=== PATIENT | female | born 1995 | race African-American/Black ===

== ENCOUNTER 2017-03-09 19:55 | Emergency (ER) | payer SELFPAY ==
[2017-03-09 19:57] VITALS: BP 111/61; PULSE 84; RESP 14; TEMP 98.6; O2SAT 98
--- NOTE | 2017-03-09 21:09 | PD ---
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 Patient denies any vaginal discharge or bleeding. Denies abdominal pain. No urinary symptoms. She has no other symptoms to report. History Past Medical Histgory Medical History: Denies Significant Hx Social History Alcohol Use: Yes Tobacco Use: No Review of Systems Except as stated in HPI: all other systems reviewed are Neg Physical Exam Narrative GENERAL: Well-nourished, well-developed female patient in no acute distress SKIN: Focused skin assessment warm/dry. HEAD: Normocephalic. EYES: No scleral icterus. No injection or drainage. NECK: Supple, trachea midline. No JVD or lymphadenopathy. CARDIOVASCULAR: Regular rate and rhythm without murmurs, gallops, or rubs. RESPIRATORY: Breath sounds equal bilaterally. No accessory muscle use. GASTROINTESTINAL: Abdomen soft, non-tender, nondistended. GENITOURINARY: Normal external genitalia without lesions. There is erythema in the labial folds with a white coating in between the labia. There is no vaginal bleeding or discharge noted. Internal exam is deferred MUSCULOSKELETAL: No cyanosis, or edema. BACK: Nontender without obvious deformity. No CVA tenderness. Data Data Last Documented VS Vital Signs Date Time Temp Pulse Resp B/P Pulse Ox O2 Delivery O2 Flow Rate FiO2 03/09/17 19:57 98.6 84 14 111/61 98 Room Air [facility] Medical Screen Exam Complete: Yes Emergency Medical Condition: No Differential Diagnosis vaginal candidiasis Narrative Course 22-year-old female presents to emergency department for evaluation of vaginal itching and irritation. Physical exam is consistent with vaginal candidiasis. I explained to the patient that there is [id number]-[id number] treatment called Monistat that she can attempt with this. At this time there are no urgent or emergent needs medical intervention identified. Medical screening exam Primary Impression: Vaginal candidiasis Additional Impression: Encounter for medical screening examination Condition: Stable Jeniffer Peters March 09, 2017 21:09
== END 2017-03-09 21:10 | disposition left against medical advice (07) ==
LOC: NEPK 19:55
DX: B37.3 Candidiasis of vulva and vagina (principal)
CPT/HCPCS: 99281